=== PATIENT | female | born 1965 | race Caucasian/White ===

== ENCOUNTER 2017-05-05 09:09 | Outpatient (CLI) | payer BC ==
[~2017-05-05] VITALS: Ht 167.6 cm; Wt 124.5 kg
[2017-05-05] MEDS ORDERED: NIAC500T24 PO (09:25)
[2017-05-05] MEDS ORDERED: NITR0.4T39 SL (09:25)
[2017-05-05] MEDS ORDERED: OXYC-465 PO (09:25)
[2017-05-05] MEDS ORDERED: LISI-552 PO (09:25)
[2017-05-05] MEDS ORDERED: METH750T3 PO (09:25)
[2017-05-05] MEDS ORDERED: METO-333 PO (09:25)
[2017-05-05] MEDS ORDERED: ASPI-586 PO (09:25)
[2017-05-05] MEDS ORDERED: FLUO20CA42 PO (09:25)
[2017-05-05] MEDS ORDERED: CLON0.5T25 PO (09:25)
[2017-05-05] MEDS ORDERED: PANT40TA3 PO (09:25)
[2017-05-05] MEDS ORDERED: HYDR25TA4 PO (09:25)
[2017-05-05] MEDS ORDERED: FISH1CAP15 PO (09:25)
[2017-05-05] MEDS ORDERED: PRAS10TA10 PO (09:25)
[2017-05-05 09:30] VITALS: BP 155/95
== END 2017-05-05 10:05 ==
LOC: PREOP 09:09
PROVIDERS: ATTEND Podiatrist Foot Surgery
DX: Z01.818 Encounter for other preprocedural examination (principal); M92.61 Juvenile osteochondrosis of tarsus, right ankle

== ENCOUNTER 2018-03-27 19:49 | Emergency (ER) | payer BC ==
[~2018-03-27] VITALS: Ht 168.9 cm; Wt 116.1 kg
[~2018-03-27 19:49] MED LIST: ASPI-586 PO; CLON0.5T25 PO; FISH1CAP15 PO; FLUO20CA42 PO; HYDR25TA4 PO; LISI-552 PO; METH750T3 PO; METO-333 PO; NIAC500T24 PO; NITR0.4T39 SL; OXYC-465 PO; PANT40TA3 PO; PRAS10TA10 PO
[2018-03-27] MEDS ORDERED: NS IV 1000 ML 1,000 ML IV ONE (20:31)
[2018-03-27 20:37] LABS: BASOPHILS % (AUTO) 0 % (0-10); EOSINOPHILS # (AUTO) 0.1 10^3/uL (0.0-0.3); EOSINOPHILS % (AUTO) 1 % (0-10); HEMATOCRIT 43 % (35-52); HEMOGLOBIN 14.7 G/DL (11.5-16.0); LYMPHOCYTES # (AUTO) 1.2 X 10^3 (1.0-4.0); LYMPHOCYTES % (AUTO) 18 % (12-44); MEAN CORPUSCULAR HEMOGLOBIN 30 PG (25-34); MEAN CORPUSCULAR HGB CONC 34 G/DL (32-36); MEAN CORPUSCULAR VOLUME 87 FL (80-99); MEAN PLATELET VOLUME 10.1 FL (7.4-10.4); MONOCYTES # (AUTO) 0.6 X 10^3 (0.0-1.0); MONOCYTES % (AUTO) 9 % (0-12); NEUTROPHILS # (AUTO) 4.6 X 10^3 (1.8-7.8); NEUTROPHILS % (AUTO) 71 % (42-75); PLATELET COUNT 296 10^3/uL (130-400); RED BLOOD COUNT 4.91 10^6/uL (4.35-5.85); RED CELL DISTRIBUTION WIDTH 14.7 % (10.0-14.5); WHITE BLOOD COUNT 6.5 10^3/uL (4.3-11.0)
[2018-03-27] MEDS ORDERED: FAMOTIDINE 20MG/2ML IV (PEPCID) IVP ONE (20:45)
[2018-03-27] MEDS ORDERED: ONDANSETRON 4 MG/2 ML (SDV) Z0FRAN IVP ONE (20:45)
[2018-03-27 20:50] LABS: ALANINE AMINOTRANSFERASE 61 U/L (0-55); ALKALINE PHOSPHATASE 106 U/L (40-136); BILIRUBIN,TOTAL 0.6 MG/DL (0.1-1.0); BUN/CREATININE RATIO 21; CALCIUM 9.3 MG/DL (8.5-10.1); CARBON DIOXIDE 23 MMOL/L (21-32); CHLORIDE 103 MMOL/L (98-107); CREATININE SERUM 0.84 MG/DL (0.60-1.30); GFR ESTIMATED > 60; GLUCOSE 98 MG/DL (70-105); LIPASE 13 U/L (8-78); MAGNESIUM 2.2 MG/DL (1.8-2.4); POTASSIUM 3.7 MMOL/L (3.6-5.0); SODIUM 139 MMOL/L (135-145); TOTAL PROTEIN 7.1 GM/DL (6.4-8.2)
[2018-03-27] MEDS ORDERED: LIDOCAINE 2% VISCOUS 15 ML UDC PO ONE (21:00)
[2018-03-27] MEDS ORDERED: ANTACID SUSP 30 ML UDC (MYLANTA) PO ONE (21:00)
[2018-03-27 21:06] LABS: CLARITY,URINE CLEAR; COLOR,URINE AMBER; GLUCOSE, URINE (UA) NEGATIVE (NEGATIVE); KETONES,URINE 3+ (NEGATIVE); LEUKOCYTE ESTERASE ,URINE 1+ (NEGATIVE); NITRITE,URINE NEGATIVE (NEGATIVE); PH,URINE 5 (5-9); PROTEIN,URINE 2+ (NEGATIVE); UROBILINOGEN,URINE 4 MG/DL (NORMAL)
--- NOTE | 2018-03-27 21:07 | ED Abdominal Pain ---
General Chief Complaint: Abdominal/GI Problems Stated Complaint: POSSIBLE BOWEL OBSTRUCTION Nursing Triage Note: Pt arrived with cc of possible bowel obstruction. Pt was seen at urgent care in [place] and had x-ray done. They were going to go to ER in , but did not want to have to go somewhere else, so they came down here. Pt stated abd pain started around 0500 this morning. She had a runny stool this morning and last real bowel movement Tuesday. Pt is having pain from 5-6 that is dull, sharp and cramping constantly. Sepsis Screen: No Definite Risk Source of Information: Patient Exam Limitations: No Limitations History of Present Illness Date Seen by Provider: Mar 27, 2018 Time Seen by Provider: 20:24 Initial Comments This 52 year old woman ambulates to the ER with GI symptoms that started with nausea, vomiting, diarrhea, fever, and chills about 4 days ago. Those symptoms have subsided but now she has significant upper abdominal pain that started around 05:00. Her last stool was a runny stool this morning. She has been able to pass a little bit of gas here in the ER. She had an x-ray performed at the outpatient clinic in [place] which was suggestive of possible early small bowel obstruction. They were advised to present to the emergency room. Patient states she does feel bloated. She's never had a bowel obstruction in the past. She is afebrile with normal vital signs at present. Allergies and Home Medications Allergies Coded Allergies: simvastatin (Verified Allergy, Mild, HIVES, 05/05/17) Home Medications Aspirin 81 Mg Tablet.dr, 81 MG PO DAILY, (Reported) Clonazepam 0.5 Mg Tab.rapdis, 0.5 MG PO BID, (Reported) Fish Oil/Dha/Epa 1 Each Capsule, 1 EACH PO BID, (Reported) Fluoxetine HCl 20 Mg Capsule, 20 MG PO DAILY, (Reported) Hydrochlorothiazide 25 Mg Tablet, 25 MG PO DAILY, (Reported) Lisinopril 20 Mg Tablet, 20 MG PO DAILY, (Reported) Methocarbamol 750 Mg Tablet, 750 MG PO TID, (Reported) Metoprolol Tartrate 25 Mg Tablet, 25 MG PO BID, (Reported) Niacinamide 500 Mg Tablet, 500 MG PO DAILY, (Reported) Nitroglycerin 0.4 Mg Tab.subl, 0.4 MG SL UD PRN for CHEST PAIN, (Reported) Oxycodone HCl/Acetaminophen 1 Each Tablet, 1 EACH PO Q4H PRN for PAIN-MODERATE, (Reported) Pantoprazole Sodium 40 Mg Tablet.dr, 40 MG PO DAILY, (Reported) Prasugrel HCl 10 Mg Tablet, 10 MG PO DAILY, (Reported) Patient Home Medication List Home Medication List Reviewed: Yes Review of Systems Review of Systems Constitutional: see HPI EENTM: No Symptoms Reported Respiratory: No Symptoms Reported Cardiovascular: No Symptoms Reported Gastrointestinal: See HPI Genitourinary: No Symptoms Reported Musculoskeletal: no symptoms reported Skin: no symptoms reported Psychiatric/Neurological: No Symptoms Reported Endocrine: No Symptoms Reported Hematologic/Lymphatic: No Symptoms Reported Past Kfexsrr-Gxvyvp-Vbclnn Hx Past Med/Social Hx: Reviewed and Corrections made Patient Social History Alcohol Use: Occasionally Uses Recreational Drug Use: No Smoking Status: Former Smoker Type Used: Cigarettes Former Smoker, Quit: Aug 12, 2016 Recent Foreign Travel: No Contact w/Someone Who Travel: No Recent Infectious Disease Expo: No Recent Hopitalizations: No Physical Abuse: No Sexual Abuse: No Mistreated: No Fear: No Seasonal Allergies Seasonal Allergies: Yes Past Medical History Surgeries: Yes (CARDIAC STENT/ANGIOPLASTY, CS X4) Section, Coronary Stent, Gallbladder, Tonsillectomy Respiratory: Yes (EARYL STAGES OF COPD) COPD Cardiac: Yes (STENT/ANGIOPLASTY AUGUST 2016) Coronary Artery Disease, Heart Attack, Heart Murmur, High Cholesterol, Hypertension Neurological: No Reproductive Disorders: No Female Reproductive Disorders: Denies Sexually Transmitted Disease: No HIV/AIDS: No Gastrointestinal: Yes Gastroesophageal Reflux Musculoskeletal: Yes Degenerate Disk Disease, Arthritis, Chronic Back Pain Endocrine: No Loss of Vision: Bilateral Hearing Impairment: Denies Cancer: No Psychosocial: Yes Anxiety Integumentary: No Blood Disorders: No Adverse Reaction/Blood Tranf: No Physical Exam Vital Signs Vital Signs - First Documented 03/27/18 20:18 Temp 99.9 Pulse 88 Resp 20 B/P (MAP) 130/89 (103) Pulse Ox 96 O2 Delivery Room Air Capillary Refill : Less Than 3 Seconds Height/Weight/BMI Height: 5'6.50" Weight: 256lbs. 9.0oz. 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 nml as tested, no motor/sensory deficits, alert, normal mood/affect, oriented x 3 Skin: normal color, warm/dry Progress/Results/Core Measures Results/Orders Lab Results Laboratory Tests Test 03/27/18 20:17 03/27/18 20:30 Range/Units White Blood Count 6.5 4.3-11.0 10^3/uL Red Blood Count 4.91 4.35-5.85 10^6/uL Hemoglobin 14.7 11.5-16.0 G/DL Hematocrit 43 35-52 % Mean Corpuscular Volume 87 80-99 FL Mean Corpuscular Hemoglobin 30 25-34 PG Mean Corpuscular Hemoglobin Concent 34 32-36 G/DL Red Cell Distribution Width 14.7 H 10.0-14.5 % Platelet Count 296 130-400 10^3/uL Mean Platelet Volume 10.1 7.4-10.4 FL Neutrophils (%) (Auto) 71 42-75 % Lymphocytes (%) (Auto) 18 12-44 % Monocytes (%) (Auto) 9 0-12 % Eosinophils (%) (Auto) 1 0-10 % Basophils (%) (Auto) 0 0-10 % Neutrophils # (Auto) 4.6 1.8-7.8 X 10^3 Lymphocytes # (Auto) 1.2 1.0-4.0 X 10^3 Monocytes # (Auto) 0.6 0.0-1.0 X 10^3 Eosinophils # (Auto) 0.1 0.0-0.3 10^3/uL Basophils # (Auto) 0.0 0.0-0.1 10^3/uL Sodium Level 139 135-145 MMOL/L Potassium Level 3.7 3.6-5.0 MMOL/L Chloride Level 103 98-107 MMOL/L Carbon Dioxide Level 23 21-32 MMOL/L Anion Gap 13 5-14 MMOL/L Blood Urea Nitrogen 18 7-18 MG/DL Creatinine 0.84 0.60-1.30 MG/DL Estimat Glomerular Filtration Rate > 60 BUN/Creatinine Ratio 21 Glucose Level 98 70-105 MG/DL Calcium Level 9.3 8.5-10.1 MG/DL Corrected Calcium 9.3 8.5-10.1 MG/DL Magnesium Level 2.2 1.8-2.4 MG/DL Total Bilirubin 0.6 0.1-1.0 MG/DL Aspartate Amino Transf (AST/SGOT) 45 H 5-34 U/L Alanine Aminotransferase (ALT/SGPT) 61 H 0-55 U/L Alkaline Phosphatase 106 40-136 U/L Total Protein 7.1 6.4-8.2 GM/DL Albumin 4.0 3.2-4.5 GM/DL Lipase 13 8-78 U/L Urine Color YESSY H Urine Clarity CLEAR Urine pH 5 5-9 Urine Specific [place] 1.020 1.016-1.022 Urine Protein 2+ H NEGATIVE Urine Glucose (UA) NEGATIVE NEGATIVE Urine Ketones 3+ H NEGATIVE Urine Nitrite NEGATIVE NEGATIVE Urine Bilirubin 2+ H NEGATIVE Urine Urobilinogen 4 H NORMAL MG/DL Urine Leukocyte Esterase 1+ H NEGATIVE Urine RBC (Auto) 1+ H NEGATIVE Urine RBC 2-5 H /HPF Urine WBC 2-5 /HPF Urine Squamous Epithelial Cells 2-5 /HPF Urine Crystals PRESENT H /LPF Urine Calcium Oxalate Crystals FEW H /LPF Urine Bacteria TRACE /HPF Urine Casts NONE /LPF Urine Mucus NEGATIVE /LPF Urine Culture Indicated NO My Orders Orders - MARISELA JOHNSON MD Cbc With Automated Diff (03/27/18 20:31) Comprehensive Metabolic Panel (03/27/18 20:31) Lipase (03/27/18 20:31) Magnesium (03/27/18 20:31) Ua Culture If Indicated (03/27/18 20:31) Saline Lock/Iv-Start (03/27/18 20:31) Ns Iv 1000 Ml (Sodium Chloride 0.9%) (03/27/18 20:31) Ondansetron Injection (Zofran Injectio (03/27/18 20:45) Famotidine Injection (Pepcid Injection) (03/27/18 20:45) Lidocaine 2% Viscous 15 Ml (Xylocaine Vi (03/27/18 21:00) Antacid Suspension (Mylanta Suspension (03/27/18 21:00) Fentanyl Injection (Sublimaze Injection (03/27/18 21:30) Ct Abdomen/Pelvis W (03/27/18 21:27) Iohexol Injection (Omnipaque 350 Mg/Ml 1 (03/27/18 22:15) Contrast Received (Contrast Received) (03/27/18 22:15) Ns (Ivpb) (Sodium Chloride 0.9% Ivpb Bag (03/27/18 22:15) Lactated Ringers (Lr 1000 Ml Iv Solution (03/27/18 23:11) Fentanyl Injection (Sublimaze Injection (03/27/18 23:30) Medications Given in ED Vital Signs/I&O 03/27/18 03/27/18 20:18 23:56 Temp 99.9 98.4 Pulse 88 69 Resp 20 18 B/P (MAP) 130/89 (103) 126/84 (98) Pulse Ox 96 95 O2 Delivery Room Air Room Air Blood Pressure Mean: 103 Progress Progress Note #1: Time: 21:06 Progress Note Patient was seen and assessed. Labs were reviewed. There are no significant lab abnormalities. UA is pending. Patient was treated with IV fluids, Zofran, and Pepcid. We will try a GI cocktail to see if that alleviates her pain. After that I will discuss further options which might include CT scan. Progress Note #2: Time: 21:30 Progress Note GI cocktail did not improve pain. Actually, her pain is worse. She is requesting pain medication. Fentanyl was ordered. After discussion of risks and benefits, CT of the abdomen and pelvis was also ordered. Progress Note #3: Time: 23:13 Progress Note Small bowel obstruction was identified on CT. No beds are available at this facility. Patient requests transfer to [facility] in [place]. Transfer was accepted by Dr. Chaudhry. Patient is ready for more pain medication. Fentanyl was ordered. A second liter of IV fluid was ordered as patient's urine suggest hypovolemia/dehydration. Diagnostic Imaging Diagonstic Imaging: CT Plain Films/CT/US/NM/MRI: abdomen, pelvis Comments CT abdomen and pelvis viewed by me. [facility] report reviewed. There is a distal small bowel obstruction without perforation. There is a secondary finding of a 2.8 cm diameter fluid containing structure in the right lower quadrant that abuts the right adnexa and is of uncertain etiology. It does not clearly represented abscessing could be a hydrosalpinx. See report for more details. Clinically, patient's pain is in her upper abdomen and does not correlate with this finding. Departure Impression Primary Impression: Small bowel obstruction Additional Impressions: Nausea vomiting and diarrhea Upper abdominal pain Hypovolemia Disposition: SHT-TRM HOSP Condition: Stable Transfer Time Spoke to Accepting Phy: 11:00 Transfer Progress Notes Patient was accepted to [facility] by general surgeon home economics extension worker, Dr. Chaudhry. Transfer Time: 00:33 Method of Transfer: EMS Departure-Patient Inst. Referrals: CARLA MOBLEY DO (PCP/Family) Primary Care Physician MARISELA OJHNSON MD Mar 27, 2018 21:07
[2018-03-27 21:14] LABS: BACTERIA,URINE TRACE /HPF; BILIRUBIN,URINE 2+ (NEGATIVE)
[2018-03-27 21:15] LABS: CALCIUM OXALATE CRYSTALS,UR FEW /LPF
[2018-03-27] MEDS ORDERED: fentaNYL INJECTION 100 MCG/2 ML AMP IVP ONE ×3 (21:30→23:30)
--- NOTE | 2018-03-27 21:54 | NUR ---
Pt stated pain is about the same. She feels like her stomach is growing.
[2018-03-27] MEDS ORDERED: IOHEXOL 350 MG/ML 100 ML (OMNIPAQUE 350) VIAL IV ONE (22:15)
[2018-03-27] MEDS ORDERED: NS 100 ML (IVPB) BAG IV ONE (22:15)
[2018-03-27] MEDS ORDERED: RECEIVED CONTRAST (Hold Metformin) IV SCH (22:15)
--- NOTE | 2018-03-27 22:32 | NUR ---
Pt stated pain is better. She stated pain is aching and heavy now.
--- NOTE | 2018-03-27 23:04 | NUR ---
Facesheet and vital signs faxed to [facility] at this time.
[2018-03-27] MEDS ORDERED: LACTATED RINGERS 1,000 ML IV ONE (23:11)
--- NOTE | 2018-03-27 23:42 | NUR ---
[facility] called at this time with room number of 391 and report number of [phone]
[2018-03-27 23:56] VITALS: BP 126/84
--- NOTE | 2018-03-28 00:01 | NUR ---
EMS was contacted at this time about transfer and that a room number has been given.
--- NOTE | 2018-03-28 00:02 | NUR ---
Dispatch was called and transfer information was given at this time.
--- NOTE | 2018-03-28 00:26 | NUR ---
Report was given to [facility] at this time. Care was transferred.
--- NOTE | 2018-03-28 00:27 | NUR ---
LR was continued en route with EMS
--- NOTE | 2018-03-28 08:08 | Diagnostic Imaging Report ---
PROCEDURE: CT abdomen and pelvis with contrast. TECHNIQUE: Multiple contiguous axial images were obtained through the abdomen and pelvis after administration of intravenous contrast. INDICATION: Abdominal pain COMPARISON: None available. FINDINGS: Lower chest: The lung bases are clear. No pericardial or pleural effusion. Peritoneum: A small volume of free pelvic fluid is present. No free intraperitoneal air. Liver and biliary system: Diffuse hypoattenuation liver is indicative of hepatic steatosis. No focal hepatic lesion. Cholecystectomy. No pathologic biliary duct dilatation. Spleen and Pancreas: Spleen is normal. The pancreas enhances normally without mass lesion or peripancreatic inflammatory changes. Adrenals: Normal. tract: The kidneys enhance normally without suspicious mass or obstruction. Urinary bladder is distended without wall thickening. Uterus is normal in appearance. A 4.1 x 2.8 cm cystic structure in the right adnexa is of unknown etiology. GI tract: Stomach is partially filled with fluid and air and there is no wall thickening. There are air and fluid-filled loops of small bowel in the left hemiabdomen. Distal small bowel loops are decompressed and features are compatible with partial small bowel obstruction. A discrete transition point is not appreciated but is likely in the left lower quadrant. No pericolonic inflammatory changes. Appendix is not seen with certainty. Vasculature and Lymph nodes: Normal caliber aorta. No abdominal or pelvic lymphadenopathy. Musculoskeletal: No concerning osseous lesion. IMPRESSION: 1. Partial small bowel obstruction with the transition point not definitely identified but potentially in the left lower quadrant. No perforation, pneumatosis or abscess. 2. Hepatic steatosis. 3. Cystic structure in right adnexa could be ovarian in nature. Followup pelvic ultrasound could be performed in the future for further characterization. 4. Findings are in agreement with the preliminary report. Dictated by: Dictated on workstation # [id number]
== END 2018-03-28 00:27 | disposition short-term general hospital (02) ==
LOC: EDUNIT# 19:49 → ER 19:52
DX: K56.609 Unspecified intestinal obstruction, unspecified as to partial versus complete obstruction (principal); E86.1 Hypovolemia; R19.7 Diarrhea, unspecified; J44.9 Chronic obstructive pulmonary disease, unspecified; I25.10 Atherosclerotic heart disease of native coronary artery without angina pectoris; I25.2 Old myocardial infarction; E78.00 Pure hypercholesterolemia, unspecified; I10 Essential (primary) hypertension; K21.9 Gastro-esophageal reflux disease without esophagitis; F41.9 Anxiety disorder, unspecified; Z88.8 Allergy status to other drugs, medicaments and biological substances; Z79.82 Long term (current) use of aspirin; Z87.891 Personal history of nicotine dependence; Z95.5 Presence of coronary angioplasty implant and graft; Z98.890 Other specified postprocedural states; Z90.89 Acquired absence of other organs; Z98.61 Coronary angioplasty status
CPT/HCPCS: 36415; 74177; 80053; 81000; 83690; 83735; 85025

== ENCOUNTER → 2019-12-27 | Outpatient (CLI) | payer BC ==
[~2019-12-27] MED LIST changes: -OXYC-465 PO; +OXYC-556 PO; -PANT40TA3 PO; +PANT40TA52 PO
--- NOTE | 2019-12-27 12:33 | Diagnostic Imaging Report ---
INDICATION: Low back pain. 3 views were obtained FINDINGS: There is some slight anterolisthesis of L4 on L5. Vertebral body heights well-maintained. There is multilevel degenerative disc disease. IMPRESSION: Diffuse lumbar spondylosis and multilevel degenerative disease with slight anterolisthesis of L4 on L5. Dictated by: Dictated on workstation # [id number]
== END ==
LOC: RAD FS 12:00
PROVIDERS: ATTEND Nurse Practitioner Family
DX: M47.816 Spondylosis without myelopathy or radiculopathy, lumbar region (principal); M51.36 Other intervertebral disc degeneration, lumbar region; M43.16 Spondylolisthesis, lumbar region
CPT/HCPCS: 72100

== ENCOUNTER → 2020-01-15 | Outpatient (CLI) | payer BC ==
--- NOTE | 2020-01-15 13:05 | Diagnostic Imaging Report ---
PROCEDURE: MRI lumbar spine. TECHNIQUE: Multiplanar, multisequence MRI of the lumbar spine was performed without contrast. INDICATION: Chronic low back pain extending into both legs. No prior MRI studies are available for comparison. Curvature of the lumbar spine is normal. There is minimal retrolisthesis of L2 on L3. Vertebral body heights are maintained. No acute compression fracture is identified. No geographic marrow lesion is seen. There are some reactive Modic changes within the endplates at L5-S1. There is generalized degenerative disc disease with variable disc space narrowing and desiccation, greatest at L1-L2 and L2-L3 as well as L5-S1 levels. The conus is unremarkable at L1. T12-L1: No central canal or neural foraminal narrowing is identified. L1-L2: There is some mild broad-based disc/osteophyte complex present. Central canal is patent but there is narrowing of the lateral recesses bilaterally. There is also mild bilateral neural foraminal narrowing. L2-L3: Broad-based disc/osteophyte complex indents the ventral thecal sac. Central canal remains patent but there is significant narrowing of the lateral recesses bilaterally. There is mild bilateral neural foraminal narrowing. L3-L4: Degenerative facet changes are noted. Central canal is patent. There is moderate narrowing of the left lateral recess. Right lateral recess is patent. There is also moderate left and mild right neural foraminal stenosis. L4-L5: Hypertrophic facet changes with ligamentous thickening and broad-based disc/osteophyte complex results in fairly significant trefoil stenosis to the central canal. There is significant narrowing of the lateral recesses bilaterally. Moderate left neural foraminal stenosis is seen. L5-S1: Central canal is patent. There is narrowing of the lateral recesses bilaterally. There is [id number] bilateral neural foraminal stenosis. Paraspinous tissues are unremarkable. IMPRESSION: Multilevel lumbar spondylosis with multilevel central canal, lateral recess and neural foraminal stenosis described level by level above. No acute compression fracture is detected. Dictated by: Dictated on workstation # [id number]
== END ==
LOC: RAD 11:00
PROVIDERS: ATTEND Physician Assistant
DX: M51.36 Other intervertebral disc degeneration, lumbar region (principal); M51.37 Other intervertebral disc degeneration, lumbosacral region; M51.87 Other intervertebral disc disorders, lumbosacral region; M48.061 Spinal stenosis, lumbar region without neurogenic claudication; M48.07 Spinal stenosis, lumbosacral region; M43.16 Spondylolisthesis, lumbar region
CPT/HCPCS: 72148

== ENCOUNTER 2021-02-10 12:27 | Emergency (ER) | payer BC ==
[~2021-02-10] VITALS: Ht 168 cm; Wt 122.4 kg
[~2021-02-10 12:27] MED LIST changes: -LISI-552 PO; +LISI20TA26 PO; +METH-732 PO; -METH750T3 PO
[2021-02-10] MEDS ORDERED: NITROGLYCERIN 0.4 MG SL TABS BTL 25'S SL ONE (12:43)
[2021-02-10] MEDS ORDERED: ASPIRIN 81 MG CHEW (CHILDREN'S ASA) ONE (12:43)
[2021-02-10] MEDS: NITROGLYCERIN 0.4 MG SL TABS BTL 25'S SL PRN ×2 (12:50→12:55)
[2021-02-10 13:00] LABS: PROTHROMBIN TIME PATIENT 13.5 SEC (12.2-14.7)
[2021-02-10] MEDS ORDERED: ASPIRIN 81 MG CHEW (CHILDREN'S ASA) PO ONE (13:00)
--- NOTE | 2021-02-10 13:05 | Diagnostic Imaging Report ---
INDICATION: Hypertension. FINDINGS: Portable chest. The lungs are well aerated and clear. Heart is not enlarged. No pulmonary edema or hilar adenopathy. No pneumothorax or pleural effusions. No bony abnormalities. IMPRESSION: Normal portable chest. Dictated by: Dictated on workstation # [id number]
[2021-02-10 13:09] LABS: HEMATOCRIT 41 % (35-52); HEMOGLOBIN 13.4 g/dL (11.5-16.0); LYMPHOCYTES % (AUTO) 22 % (12-44); MEAN CORPUSCULAR HEMOGLOBIN 29 pg (25-34); MEAN CORPUSCULAR HGB CONC 33 g/dL (32-36); MEAN CORPUSCULAR VOLUME 89 fL (80-99); MEAN PLATELET VOLUME 10.7 fL (9.0-12.2); NEUTROPHILS % (AUTO) 67 % (42-75); PLATELET COUNT 361 10^3/uL (130-400); WHITE BLOOD COUNT 8.8 10^3/uL (4.3-11.0)
[2021-02-10 13:10] LABS: BASOPHILS # (AUTO) 0.1 10^3/uL (0.0-0.1); BASOPHILS % (AUTO) 1 % (0-10); EOSINOPHILS # (AUTO) 0.3 10^3/uL (0.0-0.3); EOSINOPHILS % (AUTO) 4 % (0-10); LYMPHOCYTES # (AUTO) 1.9 X 10^3 (1.0-4.0); MONOCYTES # (AUTO) 0.6 X 10^3 (0.0-1.0); MONOCYTES % (AUTO) 6 % (0-12); NEUTROPHILS # (AUTO) 5.9 X 10^3 (1.8-7.8)
--- NOTE | 2021-02-10 13:12 | ED Chest Pain ---
General Chief Complaint: Cardiac/General Problems Stated Complaint: ELEV BP; SOB; DIAPHORESIS Nursing Triage Note: Patient presents to the ED with c/o shortness of breath, heaviness in bilateral shoulders, and elevated blood pressure. She reports that her symptoms began Tuesday when she started feeling short of breath and feeling anxious. She states that she started having heaviness and pressure in her shoulders approximately 1 hour prior to arrival. She reports that he she has been taking her blood pressure today and it has been elevated. Source: patient Exam Limitations: no limitations History of Present Illness Date Seen by Provider: Feb 10, 2021 Time Seen by Provider: 12:33 Initial Comments Here with report of markedly elevated blood pressure and heaviness in the bilateral shoulders. Does feel a bit short of breath. Does have history of acute HI 4 years ago and did have stent placed. Currently only on propranolol 50 mg twice daily. She takes that as needed. This was later determined to be metoprolol. Does not take aspirin or other anticoagulants. This is a little different than when she had her heart attack but she did have markedly uncontrolled blood pressure at the time. She does have appointment with her solar sales representative and assessor next week at [facility]. Denies nausea or vomiting but does feel the urge to go to the bathroom (bowel movement). Otherwise denies any illness symptoms. Timing/Duration: 4-6 hours, constant Severity/Quality: moderate, pressure Location: shoulder Radiation: no radiation Activities at Onset: none Prior CP/Workup: cardiac cath, heart attack Modifying Factors: improves with rest ASA po TELEPHONE BETTING CLERK: No NTG SL TELEPHONE BETTING CLERK: No Associated Symptoms: No abdominal pain, No back pain, No diaphoresis, No dizziness; fatigue; No nausea/vomiting; shortness of breath; No weakness Allergies and Home Medications Allergies Coded Allergies: simvastatin (Verified Allergy, Mild, HIVES, 05/05/17) Patient Home Medication List Home Medication List Reviewed: Yes Aspirin (Aspir 81) 81 Mg Tablet.dr, 81 MG PO DAILY, (Reported) Entered as Reported by: FLORES GARCIA on 05/05/17924 Clonazepam (Clonazepam) 0.5 Mg Tab.rapdis, 0.5 MG PO BID, (Reported) Entered as Reported by: FLORES GARCIA on 05/05/1725 Fish Oil/Dha/Epa (Fish Oil 1,200 mg Fish Oil) 1 Each Capsule, 1 EACH PO BID, (Reported) Entered as Reported by: FLORES GARCIA on 05/05/17924 Fluoxetine HCl (Prozac) 20 Mg Capsule, 20 MG PO DAILY, (Reported) Entered as Reported by: FLORES GARCIA on 05/05/17924 Hydrochlorothiazide (Hydrochlorothiazide) 25 Mg Tablet, 25 MG PO DAILY, (Reported) Entered as Reported by: FLORES GARCIA on 05/05/17924 Lisinopril (Lisinopril) 20 Mg Tablet, 20 MG PO DAILY, (Reported) Entered as Reported by: FLORES GARCIA on 05/05/17924 Methocarbamol (Methocarbamol) 750 Mg Tablet, 750 MG PO TID, (Reported) Entered as Reported by: FLORES GARCIA on 05/05/17924 Metoprolol Tartrate (Metoprolol Tartrate) 25 Mg Tablet, 25 MG PO BID, (Reported) Entered as Reported by: FLORES GARCIA on 05/05/17924 Niacinamide (Niacin) 500 Mg Tablet, 500 MG PO DAILY, (Reported) Entered as Reported by: FLORES GARCIA on 05/05/17924 Nitroglycerin (Nitroglycerin) 0.4 Mg Tab.subl, 0.4 MG SL UD PRN for CHEST PAIN, (Reported) Entered as Reported by: FLORES GARCIA on 05/05/17924 Oxycodone HCl/Acetaminophen (Oxycodone-Acetaminophen 10-325) 1 Each Tablet, 1 EACH PO Q4H PRN for PAIN-MODERATE, (Reported) Entered as Reported by: FLORES GARCIA on 05/05/17924 Pantoprazole Sodium (Pantoprazole Sodium) 40 Mg Tablet.dr, 40 MG PO DAILY, (Reported) Entered as Reported by: FLORES GARCIA on 05/05/17924 Prasugrel HCl (Prasugrel HCl) 10 Mg Tablet, 10 MG PO DAILY, (Reported) Entered as Reported by: FLORES GARCIA on 05/05/17924 Review of Systems Review of Systems Constitutional: see HPI; No chills, No fever EENTM: No Symptoms Reported Respiratory: See HPI; Denies Cough, Denies Wheezing Cardiovascular: Chest Pain; Denies Edema Gastrointestinal: See HPI; Denies Nausea, Denies Vomiting Genitourinary: No Symptoms Reported Musculoskeletal: see HPI, joint pain, muscle pain Skin: no symptoms reported All Other Systems Reviewed Negative Unless Noted: Yes Past Kblqjzy-Hbikeb-Wwlgft Hx Patient Social History Tobacco Use?: No Use of E-Cig and/or Vaping dev: No Substance use?: No Alcohol Use?: No Pt feels they are or have been: No Immunizations Up To Date First/Initial COVID19 Vaccinat: Not currently vaccinated Seasonal Allergies Seasonal Allergies: Yes Past Medical History Surgery/Hospitalization HX: HTN; [place]; Cardiac stent; Arthritis Surgeries: Yes (CARDIAC STENT/ANGIOPLASTY, CS X4) Section, Coronary Stent, Gallbladder, Tonsillectomy Respiratory: Yes (EARYL STAGES OF COPD) COPD Cardiac: Yes (STENT/ANGIOPLASTY AUGUST 2016) Coronary Artery Disease, Heart Attack, Heart Murmur, High Cholesterol, Hypertension Neurological: No Reproductive Disorders: No Female Reproductive Disorders: Denies Sexually Transmitted Disease: No HIV/AIDS: No Gastrointestinal: Yes Gastroesophageal Reflux Musculoskeletal: Yes Degenerate Disk Disease, Arthritis, Chronic Back Pain Endocrine: No Loss of Vision: Bilateral Hearing Impairment: Denies Cancer: No Psychosocial: Yes Anxiety Integumentary: No Blood Disorders: No Adverse Reaction/Blood Tranf: No Family Medical History Reviewed Nursing Family Hx Hypertension, Renal Disease Physical Exam Vital Signs Vital Signs - First Documented 02/10/21 12:30 Temp 36.2 Pulse 76 Resp 20 B/P (MAP) 219/109 (145) Pulse Ox 98 O2 Delivery Room Air Capillary Refill : Less Than 3 Seconds Height, Weight, BMI Height: 5'6.50" Weight: 256lbs. 9.0oz. [id number]; 43.00 BMI Method:Stated General Appearance: No Apparent Distress, WD/WN HEENT: PERRL/EOMI, Pharynx Normal Neck: Non Tender, Supple Respiratory: Lungs Clear, Normal Breath Sounds Cardiovascular: Regular Rate, Rhythm, No Murmur Gastrointestinal: Non Tender, Soft Extremity: Normal Range of Motion, Non Tender Neurologic/Psychiatric: Alert, Oriented x3 Skin: Normal Color, Warm/Dry Progress/Results/Core Measures Results/Orders Lab Results Laboratory Tests Test 02/10/21 12:40 11/30/21 14:28 Range/Units White Blood Count 8.8 4.3-11.0 10^3/uL Red Blood Count 4.61 3.80-5.11 10^6/uL Hemoglobin 13.4 11.5-16.0 g/dL Hematocrit 41 35-52 % Mean Corpuscular Volume 89 80-99 fL Mean Corpuscular Hemoglobin 29 25-34 pg Mean Corpuscular Hemoglobin Concent 33 32-36 g/dL Red Cell Distribution Width 13.6 10.0-14.5 % Platelet Count 361 130-400 10^3/uL Mean Platelet Volume 10.7 9.0-12.2 fL Neutrophils (%) (Auto) 67 42-75 % Lymphocytes (%) (Auto) 22 12-44 % Monocytes (%) (Auto) 6 0-12 % Eosinophils (%) (Auto) 4 0-10 % Basophils (%) (Auto) 1 0-10 % Neutrophils # (Auto) 5.9 1.8-7.8 X 10^3 Lymphocytes # (Auto) 1.9 1.0-4.0 X 10^3 Monocytes # (Auto) 0.6 0.0-1.0 X 10^3 Eosinophils # (Auto) 0.3 0.0-0.3 10^3/uL Basophils # (Auto) 0.1 0.0-0.1 10^3/uL Prothrombin Time 13.5 12.2-14.7 SEC INR Comment 1.0 0.8-1.4 Activated Partial Thromboplast Time 29 24-35 SEC Sodium Level 139 135-145 MMOL/L Potassium Level 4.5 3.6-5.0 MMOL/L Chloride Level 104 98-107 MMOL/L Carbon Dioxide Level 25 21-32 MMOL/L Anion Gap 10 5-14 MMOL/L Blood Urea Nitrogen 15 7-18 MG/DL Creatinine 0.68 0.60-1.30 MG/DL Estimat Glomerular Filtration Rate 90 BUN/Creatinine Ratio 22 Glucose Level 98 70-105 MG/DL Calcium Level 9.7 8.5-10.1 MG/DL Corrected Calcium 9.3 8.5-10.1 MG/DL Magnesium Level 2.2 1.6-2.4 MG/DL Total Bilirubin 0.4 0.1-1.0 MG/DL Aspartate Amino Transf (AST/SGOT) 30 5-34 U/L Alanine Aminotransferase (ALT/SGPT) 29 0-55 U/L Alkaline Phosphatase 121 40-136 U/L Myoglobin 22.2 10.0-92.0 NG/ML Troponin I < 0.30 < 0.30 <0.30 NG/ML Total Protein 8.0 6.4-8.2 GM/DL Albumin 4.5 3.2-4.5 GM/DL My Orders Orders - HOWIE POP MD Aspirin Chewable Tablet (Baby Aspirin Ch (02/10/21 12:43) Nitroglycerin 0.4 Mg Btl 25's (Nitrostat (02/10/21 12:43) Cbc With Automated Diff (02/10/21 12:46) Magnesium (02/10/21 12:46) Chest 1 View Ap/Pa Only (02/10/21 12:46) Ekg Tracing (02/10/21 12:46) Comprehensive Metabolic Panel (02/10/21 12:46) Myoglobin Serum (02/10/21 12:46) Protime With Inr (02/10/21 12:46) Partial Thromboplastin Time (02/10/21 12:46) Monitor-Rhythm Ecg Trace Only (02/10/21 12:46) Lipid Panel (02/11/21 06:00) Aspirin Chewable Tablet (Baby Aspirin Ch (02/10/21 13:00) Nitroglycerin 0.4 Mg Btl 25's (Nitrostat (02/10/21 13:00) Ed Iv/Invasive Line Start (02/10/21 12:46) Troponin I Fs (02/10/21 12:46) Amlodipine Tablet (Norvasc Tablet) (02/10/21 13:45) Clonidine Tablet (Catapres Tablet) (02/10/21 14:15) Troponin I Fs (02/10/21 14:29) Medications Given in ED Current Medications Medications Dose Ordered Sig/Dorie Route Start Time Stop Time Status Last Admin Dose Admin Amlodipine Besylate 10 mg ONCE ONCE PO 02/10/21 13:45 02/10/21 13:46 DC 02/10/21 13:37 10 MG Aspirin 324 mg ONCE ONCE PO 02/10/21 13:00 02/10/21 13:01 DC 02/10/21 12:50 324 MG Clonidine HCl 0.1 mg ONCE ONCE PO 02/10/21 14:15 02/10/21 14:16 DC 02/10/21 14:05 0.1 MG Nitroglycerin 0.4 mg UD PRN SL 02/10/21 13:00 02/10/21 12:55 0.4 MG Vital Signs/I&O 02/10/21 12:30 Temp 36.2 Pulse 76 Resp 20 B/P (MAP) 219/109 (145) Pulse Ox 98 O2 Delivery Room Air Blood Pressure Mean: 145 Progress Progress Note : Progress Note Seen and evaluated. IV, labs, EKG and chest x-ray ordered. ASA 324 mg p.o. Nitroglycerin sublingual ordered. 1314: Blood pressure 155/88 heart rate 58 currently with O2 sat 94%. Monitor patient. 1330: No acute findings on lab, x- ray or EKG. Blood pressure has improved. We will give amlodipine 10 mg p.o. now and repeat labs. If repeat troponin is still negative, patient will be discharged home if she is chest pain-free and she has cardiology follow-up already in place. Patient is in agreement with that plan. She does report that she has been taking her metoprolol as needed and not scheduled and this may be part of the issue as well. Previously was on lisinopril and hydrochlorothiazide and is no longer on those. Monitor patient. 1531: Chest pain/shoulder pain is gone currently. Blood pressure improved after amlodipine and currently is 154/74 with heart rate of 95 and O2 sat 97%. Patient now remembers that she has been out of her prescription for lisinopril and hydrochlorothiazide and needs to get back with her doctor. We will go ahead and write a month prescription for that and she will continue her metoprolol and follow-up with her solar sales representative and assessor next week as scheduled. Overall she feels better. Discharged home with return precautions. Patient verbalized understanding instructions and agreement with plan. Initial ECG Impression Date: Feb 10, 2021 Initial ECG Impression Time: 12:30 Initial ECG Rate: 67 Initial ECG Rhythm: Normal Sinus Comment Sinus rhythm with wandering baseline. Normal axis. No evidence of ST elevation HI. Interpreted by me. Diagnostic Imaging Diagonstic Imaging: Xray Plain Films/CT/US/NM/MRI: chest Comments [facility]. [place], [place] NAME: [facility] REC#: [id number] PT STATUS: REG ER : 1965 PHYSICIAN: HOWIE POP MD ADMIT DATE: 02/10/21/ER FS Draft Date of Exam:02/10/21 CHEST 1 VIEW AP/PA ONLY INDICATION: Hypertension. FINDINGS: Portable chest. The lungs are well aerated and clear. Heart is not enlarged. No pulmonary edema or hilar adenopathy. No pneumothorax or pleural effusions. No bony abnormalities. IMPRESSION: Normal portable chest. Dictated on workstation # [id number] Dict: 02/10/21 1302 Trans: 02/10/21 1305 [id number] Interpreted by: DAVIN WILKINSON MD Electronically signed by: Departure Impression Primary Impression: Labile hypertension Additional Impression: Chest pain Qualified Codes: R07.9 - Chest pain, unspecified Disposition: 01 HOME, SELF-CARE Condition: Improved Departure-Patient Inst. Decision time for Depature: 15:32 Referrals: CARLA MOBLEY DO (PCP/Family) Primary Care Physician Patient Instructions: High Blood Pressure ED, Chest Pain (DC) Add. Discharge Instructions: All discharge instructions reviewed with patient and/or family. Voiced understanding. Take medications as directed. Follow-up with your solar sales representative and assessor as scheduled. Return for worse pain, fever, vomiting, weakness, breathing problems or other concerns as needed. Scripts Hydrochlorothiazide (Hydrochlorothiazide) 25 Mg Tablet 25 MG PO DAILY for 30 Days, #30 TAB Prov: HOWIE POP MD 02/10/21 Lisinopril (Lisinopril) 20 Mg Tablet 20 MG PO DAILY for 30 Days, #30 TAB 0 Refills Prov: HOWIE POP MD 02/10/21 HOWIE POP MD Feb 10, 2021 13:12
[2021-02-10 13:22] LABS: ALBUMIN 4.5 GM/DL (3.2-4.5); BILIRUBIN,TOTAL 0.4 MG/DL (0.1-1.0); CALCIUM 9.7 MG/DL (8.5-10.1); CREATININE SERUM 0.68 MG/DL (0.60-1.30); MAGNESIUM 2.2 MG/DL (1.6-2.4); POTASSIUM 4.5 MMOL/L (3.6-5.0)
[2021-02-10] MEDS ORDERED: amLODIPine 10 MG (NORVASC) TAB PO ONE (13:45)
[2021-02-10] MEDS ORDERED: cloNIDine 0.1 MG (CATAPRES) TAB PO ONE (14:15)
[2021-02-10 15:32] VITALS: BP 154/74
[2021-02-10] MEDS ORDERED: HYDR25TA4 PO (15:36)
[2021-02-10] MEDS ORDERED: LISI20TA26 PO (15:36)
== END 2021-02-10 15:45 | disposition home or self-care (01) ==
LOC: EDUNIT# 12:27 → ER FS 12:29
DX: I10 Essential (primary) hypertension (principal); R07.9 Chest pain, unspecified; J44.9 Chronic obstructive pulmonary disease, unspecified; I25.2 Old myocardial infarction; K21.9 Gastro-esophageal reflux disease without esophagitis; F41.9 Anxiety disorder, unspecified; G89.29 Other chronic pain; M54.9 Dorsalgia, unspecified; Z79.82 Long term (current) use of aspirin; Z79.01 Long term (current) use of anticoagulants; Z79.899 Other long term (current) drug therapy; Z79.891 Long term (current) use of opiate analgesic
CPT/HCPCS: 36415; 71045; 80053; 83735; 83874; 84484; 85025; 85610; 85730; 93005; 93041

== ENCOUNTER 2022-04-16 12:20 | Emergency (ER) | payer BC ==
[~2022-04-16] VITALS: Ht 167.7 cm; Wt 112.5 kg
--- NOTE | 2022-04-16 12:30 | ED General ---
General Stated Complaint: LT ARM NUMBNESS; FACIAL NUMBNESS Source of Information: Patient Exam Limitations: No Limitations History of Present Illness Date Seen by Provider: Apr 16, 2022 Time Seen by Provider: 12:15 Initial Comments Patient is a 56-year-old female with history of CAD hypertension who presents with decreased concentration, fatigue, and symmetric facial numbness and tingling in the fingertips starting today while at work. Patient denies headache, blurred vision, chest pain, palpitations or shortness of breath. No fever chills, carcinoma [place] or sweats. No other acute symptoms or complain ts. Timing/Duration: 1-3 Hours Severity: Mild Associated Systoms: Other Allergies and Home Medications Allergies Coded Allergies: simvastatin (Verified Allergy, Mild, HIVES, 05/05/17) Patient Home Medication List Home Medication List Reviewed: Yes Aspirin (Aspir 81) 81 Mg Tablet.dr, 81 MG PO DAILY, (Reported) Entered as Reported by: FLORES GARCIA on 05/05/17924 Clonazepam (Clonazepam) 0.5 Mg Tab.rapdis, 0.5 MG PO BID, (Reported) Entered as Reported by: FLORES GARCIA on 05/05/17924 Fish Oil/Dha/Epa (Fish Oil 1,200 mg Fish Oil) 1 Each Capsule, 1 EACH PO BID, (Reported) Entered as Reported by: FLORES GARCIA on 05/05/17924 Fluoxetine HCl (Prozac) 20 Mg Capsule, 20 MG PO DAILY, (Reported) Entered as Reported by: FLORES GARCIA on 05/05/17924 Hydrochlorothiazide (Hydrochlorothiazide) 25 Mg Tablet, 25 MG PO DAILY, (Reported) Entered as Reported by: FLORES GARCIA on 05/05/17924 Hydrochlorothiazide (Hydrochlorothiazide) 25 Mg Tablet, 25 MG PO DAILY Prescribed by: HOWIE POP on 02/10/211535 Lisinopril (Lisinopril) 20 Mg Tablet, 20 MG PO DAILY, (Reported) Entered as Reported by: FLORES GARCIA on 05/05/17924 Lisinopril (Lisinopril) 20 Mg Tablet, 20 MG PO DAILY Prescribed by: HOWIE POP on 11/30/21 1536 Methocarbamol (Methocarbamol) 750 Mg Tablet, 750 MG PO TID, (Reported) Entered as Reported by: FLORES GARCIA on 05/05/17924 Metoprolol Tartrate (Metoprolol Tartrate) 25 Mg Tablet, 25 MG PO BID, (Reported) Entered as Reported by: FLORES GARCIA on 05/05/17924 Niacinamide (Niacin) 500 Mg Tablet, 500 MG PO DAILY, (Reported) Entered as Reported by: FLORES GARCIA on 05/05/17924 Nitroglycerin (Nitroglycerin) 0.4 Mg Tab.subl, 0.4 MG SL UD PRN for CHEST PAIN, (Reported) Entered as Reported by: FLORES GARCIA on 05/05/17924 Oxycodone HCl/Acetaminophen (Oxycodone-Acetaminophen 10-325) 1 Each Tablet, 1 EACH PO Q4H PRN for PAIN-MODERATE, (Reported) Entered as Reported by: FLORES GARCIA on 05/05/17924 Pantoprazole Sodium (Pantoprazole Sodium) 40 Mg Tablet.dr, 40 MG PO DAILY, (Reported) Entered as Reported by: FLORES GARCIA on 05/05/17924 Prasugrel HCl (Prasugrel HCl) 10 Mg Tablet, 10 MG PO DAILY, (Reported) Entered as Reported by: FLORES GARCIA on 05/05/17924 Review of Systems Review of Systems Constitutional: see HPI EENTM: no symptoms reported Respiratory: no symptoms reported, see HPI Cardiovascular: see HPI Genitourinary: see HPI Musculoskeletal: see HPI Skin: see HPI Psychiatric/Neurological: See HPI Hematologic/Lymphatic: See HPI Immunological/Allergic: see HPI All Other Systems Reviewed Negative Unless Noted: No Past Ahswlds-Lalbcg-Zxwjpr Hx Patient Social History Tobacco Use?: No Immunizations Up To Date First/Initial COVID19 Vaccinat: Not currently vaccinated Seasonal Allergies Seasonal Allergies: Yes Past Medical History Surgery/Hospitalization HX: HTN; [place]; Cardiac stent; Arthritis Surgeries: Yes (CARDIAC STENT/ANGIOPLASTY, CS X4) Section, Coronary Stent, Gallbladder, Tonsillectomy Respiratory: Yes (EARYL STAGES OF COPD) COPD Cardiac: Yes (STENT/ANGIOPLASTY AUGUST 2016) Coronary Artery Disease, Heart Attack, Heart Murmur, High Cholesterol, Hypertension Neurological: No Reproductive Disorders: No Female Reproductive Disorders: Denies Sexually Transmitted Disease: No HIV/AIDS: No Gastrointestinal: Yes Gastroesophageal Reflux Musculoskeletal: Yes Degenerate Disk Disease, Arthritis, Chronic Back Pain Endocrine: No Loss of Vision: Bilateral Hearing Impairment: Denies Cancer: No Psychosocial: Yes Anxiety Integumentary: No Blood Disorders: No Adverse Reaction/Blood Tranf: No Family Medical History Hypertension, Renal Disease Physical Exam Vital Signs Vital Signs - First Documented 04/16/22 12:23 Temp 36.9 Pulse 86 Resp 20 B/P (MAP) 177/88 (117) Pulse Ox 99 O2 Delivery Room Air Capillary Refill : Height, Weight, BMI Height: 5'6.50" Weight: 256lbs. 9.0oz. 116.794466on; 43.00 BMI Method:Stated General Appearance: No Apparent Distress, WD/WN Eyes: Bilateral Eye Normal Inspection, Bilateral Eye PERRL, Bilateral Eye EOMI HEENT: PERRL/EOMI, Pharynx Normal Neck: Full Range of Motion, Non Tender Respiratory: Lungs Clear Cardiovascular: Regular Rate, Rhythm Gastrointestinal: Non Tender, Soft Neurologic/Psychiatric: Alert, Oriented x3, Normal Mood/Affect Focused Exam Sepsis Stage: Ruled Out Progress/Results/Core Measures Suspected Sepsis SIRS Temperature: Pulse: Respiratory Rate: Laboratory Tests 04/16/22 12:29: White Blood Count 7.3 Blood Pressure / Mean: Laboratory Tests 04/16/22 12:29: Creatinine 0.89, Platelet Count 325, Total Bilirubin 0.4 Results/Orders Lab Results Laboratory Tests Test 04/16/22 12:29 04/16/22 14:07 Range/Units White Blood Count 7.3 4.3-11.0 10^3/uL Red Blood Count 4.70 3.80-5.11 10^6/uL Hemoglobin 13.9 11.5-16.0 g/dL Hematocrit 42 35-52 % Mean Corpuscular Volume 89 80-99 fL Mean Corpuscular Hemoglobin 30 25-34 pg Mean Corpuscular Hemoglobin Concent 33 32-36 g/dL Red Cell Distribution Width 13.1 10.0-14.5 % Platelet Count 325 130-400 10^3/uL Mean Platelet Volume 10.8 9.0-12.2 fL Immature Granulocyte % (Auto) 0 % Neutrophils (%) (Auto) 64 42-75 % Lymphocytes (%) (Auto) 24 12-44 % Monocytes (%) (Auto) 6 0-12 % Eosinophils (%) (Auto) 5 0-10 % Basophils (%) (Auto) 1 0-10 % Neutrophils # (Auto) 4.7 1.8-7.8 10^3/uL Lymphocytes # (Auto) 1.7 1.0-4.0 10^3/uL Monocytes # (Auto) 0.4 0.0-1.0 10^3/uL Eosinophils # (Auto) 0.4 H 0.0-0.3 10^3/uL Basophils # (Auto) 0.1 0.0-0.1 10^3/uL Immature Granulocyte # (Auto) 0.0 0.0-0.1 10^3/uL D-Dimer 0.41 0.00-0.49 UG/ML Sodium Level 138 135-145 MMOL/L Potassium Level 3.7 3.6-5.0 MMOL/L Chloride Level 100 98-107 MMOL/L Carbon Dioxide Level 27 21-32 MMOL/L Anion Gap 11 5-14 MMOL/L Blood Urea Nitrogen 26 H 7-18 MG/DL Creatinine 0.89 0.60-1.30 MG/DL Estimat Glomerular Filtration Rate 76 BUN/Creatinine Ratio 29 Glucose Level 97 70-105 MG/DL Calcium Level 10.0 8.5-10.1 MG/DL Corrected Calcium 8.5-10.1 MG/DL Magnesium Level 2.0 1.6-2.4 MG/DL Total Bilirubin 0.4 0.1-1.0 MG/DL Aspartate Amino Transf (AST/SGOT) 22 5-34 U/L Alanine Aminotransferase (ALT/SGPT) 24 0-55 U/L Alkaline Phosphatase 105 40-136 U/L Troponin I < 0.30 <0.30 NG/ML Total Protein 7.8 6.4-8.2 GM/DL Albumin 4.8 H 3.2-4.5 GM/DL Thyroid Stimulating Hormone (TSH) 0.91 0.35-4.94 UIU/ML Influenza Type A (RT-PCR) Not Detected Not Detecte Influenza Type B (RT-PCR) Not Detected Not Detecte SARS-CoV-2 RNA (RT-PCR) Not Detected Not Detecte My Orders Orders - VIOLETA CHUNG DO Cbc With Automated Diff (04/16/22 12:25) Comprehensive Metabolic Panel (04/16/22 12:25) Troponin I Fs (04/16/22 12:25) Thyroid Stimulating Hormone (04/16/22 12:25) Magnesium (04/16/22 12:25) Ekg Tracing (04/16/22 12:25) Fibrin Degradation Products (04/16/22 12:25) Covid 19 Inhouse Test (04/16/22 14:02) Influenza A And B By Pcr (04/16/22 14:02) Isolation Central Supply Req (04/16/22 14:02) Vital Signs/I&O 04/16/22 12:23 Temp 36.9 Pulse 86 Resp 20 B/P (MAP) 177/88 (117) Pulse Ox 99 O2 Delivery Room Air Capillary Refill : Departure Communication (Admissions) EKG:Sinus rhythm, low voltage, rate 63 Patient remains patient with no focal neurologic deficits. Denies chest pain palpitation shortness of breath. No fever chills or sweats. Patient with vague headache dizziness of malaise and paresthesia of extremities. Electrolytes checked and reassuring. Blood pressure improved without treatment. Recommendations are discharge home, watchful waiting and PCP follow-up. Return precautions reviewed. Patient verbalizes understanding agreement discharge instructions prior to departure. Impression Primary Impression: Dizziness Additional Impression: Paresthesias Disposition: 01 HOME, SELF-CARE Condition: Stable Departure-Patient Inst. Decision time for Depature: 15:00 Referrals: CARLA MOBLEY DO (PCP) Primary Care Physician Patient Instructions: Dizziness, Adult ED, Paresthesia (DC) Add. Discharge Instructions: You were evaluated in the emergency department for headache, numbness in extremities and dizziness. Labs, EKG were performed and are nondiagnostic. The exact cause of your symptoms has not been determined. Please go home and rest, take Aleve or Tylenol for headache increase fluids and follow-up with your PCP next 2 to 3 days for reevaluation if symptoms persist. Return to the ED if new or worsening symptoms. VIOLETA CHUNG DO Apr 16, 2022 12:30
[2022-04-16 12:55] LABS: BASOPHILS # (AUTO) 0.1 10^3/uL (0.0-0.1); BASOPHILS % (AUTO) 1 % (0-10); EOSINOPHILS # (AUTO) 0.4 10^3/uL (0.0-0.3); EOSINOPHILS % (AUTO) 5 % (0-10); HEMATOCRIT 42 % (35-52); HEMOGLOBIN 13.9 g/dL (11.5-16.0); LYMPHOCYTES # (AUTO) 1.7 10^3/uL (1.0-4.0); LYMPHOCYTES % (AUTO) 24 % (12-44); MEAN CORPUSCULAR HEMOGLOBIN 30 pg (25-34); MEAN CORPUSCULAR HGB CONC 33 g/dL (32-36); MEAN CORPUSCULAR VOLUME 89 fL (80-99); MEAN PLATELET VOLUME 10.8 fL (9.0-12.2); MONOCYTES # (AUTO) 0.4 10^3/uL (0.0-1.0); MONOCYTES % (AUTO) 6 % (0-12); NEUTROPHILS # (AUTO) 4.7 10^3/uL (1.8-7.8); NEUTROPHILS % (AUTO) 64 % (42-75); PLATELET COUNT 325 10^3/uL (130-400); WHITE BLOOD COUNT 7.3 10^3/uL (4.3-11.0)
[2022-04-16 13:09] LABS: BUN/CREATININE RATIO 29; CARBON DIOXIDE 27 MMOL/L (21-32); CHLORIDE 100 MMOL/L (98-107); CREATININE SERUM 0.89 MG/DL (0.60-1.30); GFR ESTIMATED 76; GLUCOSE 97 MG/DL (70-105); POTASSIUM 3.7 MMOL/L (3.6-5.0); SODIUM 138 MMOL/L (135-145)
[2022-04-16 13:10] LABS: ALANINE AMINOTRANSFERASE 24 U/L (0-55); ALBUMIN 4.8 GM/DL (3.2-4.5); ALKALINE PHOSPHATASE 105 U/L (40-136); BILIRUBIN,TOTAL 0.4 MG/DL (0.1-1.0); TOTAL PROTEIN 7.8 GM/DL (6.4-8.2)
[2022-04-16 15:04] VITALS: BP 127/56
== END 2022-04-16 15:03 | disposition home or self-care (01) ==
LOC: EDUNIT# 12:20 → ER FS 12:21
DX: R42 Dizziness and giddiness (principal); R20.2 Paresthesia of skin; Z20.822 Contact with and (suspected) exposure to COVID-19; Z28.310 Unvaccinated for COVID-19
CPT/HCPCS: 36415; 80053; 83735; 84443; 84484; 85025; 85379; 87636; 93005

== ENCOUNTER 2022-09-05 22:06 | Emergency (ER) | payer BC ==
[~2022-09-05] VITALS: Ht 167.7 cm; Wt 114.1 kg
[2022-09-05] MEDS ORDERED: NS IV 1000 ML 1,000 ML IV STA (22:38)
--- NOTE | 2022-09-05 22:38 | ED Abdominal Pain ---
General Chief Complaint: Abdominal/GI Problems Stated Complaint: ABDOMINAL PAINS| FEVER History of Present Illness Date Seen by Provider: Sep 05, 2022 Time Seen by Provider: 22:30 Initial Comments 56-year-old female presents with lower abdominal cramping and diarrhea. Is been going on for 6 to 7 days. Patient was seen earlier in the week at [facility] and told that it was a viral bug. She presents tonight because she is just continue to have pain and cramping. Allergies and Home Medications Allergies Coded Allergies: simvastatin (Verified Allergy, Mild, HIVES, 05/05/17) Patient Home Medication List Home Medication List Reviewed: Yes Aspirin (Aspir 81) 81 Mg Tablet.dr, 81 MG PO DAILY, (Reported) Entered as Reported by: FLORES GARCIA on 05/05/17924 Ciprofloxacin HCl (Ciprofloxacin HCl) 500 Mg Tablet, 500 MG PO BID Prescribed by: STACI ABEL on 09/06/22 0029 Clonazepam (Clonazepam) 0.5 Mg Tab.rapdis, 0.5 MG PO BID, (Reported) Entered as Reported by: FLORES GARCIA on 05/05/17924 Fish Oil/Dha/Epa (Fish Oil 1,200 mg Fish Oil) 1 Each Capsule, 1 EACH PO BID, (Reported) Entered as Reported by: FLORES GARCIA on 05/05/17924 Fluoxetine HCl (Prozac) 20 Mg Capsule, 20 MG PO DAILY, (Reported) Entered as Reported by: FLORES GARCIA on 05/05/17924 Hydrochlorothiazide (Hydrochlorothiazide) 25 Mg Tablet, 25 MG PO DAILY, (Re ported) Entered as Reported by: FLORES GARCIA on 05/05/17924 Lisinopril (Lisinopril) 20 Mg Tablet, 20 MG PO DAILY, (Reported) Entered as Reported by: FLORES GARCIA on 05/05/17924 Methocarbamol (Methocarbamol) 750 Mg Tablet, 750 MG PO TID, (Reported) Entered as Reported by: FLORES GARCIA on 05/05/17924 Metoprolol Tartrate (Metoprolol Tartrate) 25 Mg Tablet, 25 MG PO BID, (Reported) Entered as Reported by: FLORES GARCIA on 05/05/17924 Metronidazole (Metronidazole) 500 Mg Tablet, 500 MG PO BID Prescribed by: STACI ABEL on 09/06/22 0029 Niacinamide (Niacin) 500 Mg Tablet, 500 MG PO DAILY, (Reported) Entered as Reported by: FLORES GARCIA on 05/05/17924 Nitroglycerin (Nitroglycerin) 0.4 Mg Tab.subl, 0.4 MG SL UD PRN for CHEST PAIN, (Reported) Entered as Reported by: FLORES GARCIA on 05/05/17924 Oxycodone HCl/Acetaminophen (Oxycodone-Acetaminophen 10-325) 1 Each Tablet, 1 EACH PO Q4H PRN for PAIN-MODERATE, (Reported) Entered as Reported by: FLORES GARCIA on 05/05/17924 Pantoprazole Sodium (Pantoprazole Sodium) 40 Mg Tablet.dr, 40 MG PO DAILY, (Reported) Entered as Reported by: FLORES GARCIA on 05/05/17924 Prasugrel HCl (Prasugrel HCl) 10 Mg Tablet, 10 MG PO DAILY, (Reported) Entered as Reported by: FLORES GARCIA on 05/05/17924 Discontinued Medications Hydrochlorothiazide (Hydrochlorothiazide) 25 Mg Tablet, 25 MG PO DAILY Discontinued Reason: Referral/FU Appt-Addtl Prescribed by: HOWIE POP on 02/10/211535 Last Action: Discontinued Lisinopril (Lisinopril) 20 Mg Tablet, 20 MG PO DAILY Discontinued Reason: Referral/FU Appt-Addtl Prescribed by: HOWIE POP on 02/10/211535 Last Action: Discontinued Review of Systems Review of Systems Constitutional: No chills, No fever Respiratory: No Symptoms Reported Cardiovascular: No Symptoms Reported Gastrointestinal: See HPI, Abdominal Pain, Diarrhea Genitourinary: No Symptoms Reported Musculoskeletal: no symptoms reported Skin: no symptoms reported Psychiatric/Neurological: No Symptoms Reported Endocrine: No Symptoms Reported Hematologic/Lymphatic: No Symptoms Reported Past Lawiffv-[id number] Hx Patient Social History Tobacco Use?: No Smoking Status: Unknown if Ever Smoked Use of E-Cig and/or Vaping dev: No Use of E-Cig and/or Vaping Silvio: Unknown if Ever Used Substance use?: No Alcohol Use?: Yes Alcohol Frequency: Once in a while Pt feels they are or have been: No Immunizations Up To Date Influenza Vaccine Up-to-Date: No; Not Current First/Initial COVID19 Vaccinat: Not currently vaccinated Second COVID19 Vaccination Francois: Not currently vaccinated Third COVID19 Vaccination Date: Not currently vaccinated Seasonal Allergies Seasonal Allergies: Yes Past Medical History Surgery/Hospitalization HX: HTN; SD; Cardiac stent; Arthritis; GERD Surgeries: Yes (CARDIAC STENT/ANGIOPLASTY, CS X4) Section, Coronary Stent, Gallbladder, Tonsillectomy Respiratory: Yes (EARYL STAGES OF COPD) COPD Cardiac: Yes (STENT/ANGIOPLASTY AUGUST 2016) Coronary Artery Disease, Heart Attack, Heart Murmur, High Cholesterol, Hypertension Neurological: No Reproductive Disorders: No Female Reproductive Disorders: Denies Sexually Transmitted Disease: No HIV/AIDS: No Gastrointestinal: Yes Gastroesophageal Reflux Musculoskeletal: Yes Degenerate Disk Disease, Arthritis, Chronic Back Pain Endocrine: No Loss of Vision: Bilateral Hearing Impairment: Denies Cancer: No Psychosocial: Yes Anxiety Integumentary: No Blood Disorders: No Adverse Reaction/Blood Tranf: No Family Medical History Hypertension, Renal Disease Physical Exam Vital Signs Vital Signs - First Documented 09/05/22 22:15 Temp 36.8 Pulse 95 Resp 16 B/P (MAP) 154/82 (106) Pulse Ox 98 O2 Delivery Room Air Capillary Refill : Height/Weight/BMI Height: 5'6.50" Weight: 256lbs. 9.0oz. [id number]; 40.00 BMI Method:Stated General Appearance: WD/WN, no apparent distress Respiratory: lungs clear, normal breath sounds Cardiovascular: normal peripheral pulses, regular rate, rhythm Gastrointestinal: soft, tenderness Neurologic/Psychiatric: alert, normal mood/affect, oriented x 3 Skin: normal color, warm/dry Progress/Results/Core Measures Results/Orders Lab Results Laboratory Tests Test 09/05/22 22:20 09/05/22 22:45 Range/Units Urine Color DARK YELLOW Urine Clarity CLEAR Urine pH 6.0 5-9 Urine Specific [place] 1.025 H 1.016-1.022 Urine Protein TRACE H NEGATIVE Urine Glucose (UA) NEGATIVE NEGATIVE Urine Ketones NEGATIVE NEGATIVE Urine Nitrite NEGATIVE NEGATIVE Urine Bilirubin NEGATIVE NEGATIVE Urine Urobilinogen 0.2 < = 1.0 MG/DL Urine Leukocyte Esterase NEGATIVE NEGATIVE Urine RBC (Auto) TRACE-I H NEGATIVE Urine RBC 2-5 H /HPF Urine WBC 10-25 H /HPF Urine Squamous Epithelial Cells 25-50 H /HPF Urine Crystals NONE /LPF Urine Bacteria MODERATE H /HPF Urine Casts NONE /LPF Urine Mucus MODERATE H /LPF Urine Culture Indicated NO White Blood Count 5.9 4.3-11.0 10^3/uL Red Blood Count 4.45 3.80-5.11 10^6/uL Hemoglobin 13.0 11.5-16.0 g/dL Hematocrit 40 35-52 % Mean Corpuscular Volume 89 80-99 fL Mean Corpuscular Hemoglobin 29 25-34 pg Mean Corpuscular Hemoglobin Concent 33 32-36 g/dL Red Cell Distribution Width 13.0 10.0-14.5 % Platelet Count 294 130-400 10^3/uL Mean Platelet Volume 10.4 9.0-12.2 fL Immature Granulocyte % (Auto) 2 % Neutrophils (%) (Auto) 71 42-75 % Lymphocytes (%) (Auto) 17 12-44 % Monocytes (%) (Auto) 7 0-12 % Eosinophils (%) (Auto) 3 0-10 % Basophils (%) (Auto) 1 0-10 % Neutrophils # (Auto) 4.2 1.8-7.8 10^3/uL Lymphocytes # (Auto) 1.0 1.0-4.0 10^3/uL Monocytes # (Auto) 0.4 0.0-1.0 10^3/uL Eosinophils # (Auto) 0.2 0.0-0.3 10^3/uL Basophils # (Auto) 0.1 0.0-0.1 10^3/uL Immature Granulocyte # (Auto) 0.1 0.0-0.1 10^3/uL Sodium Level 140 135-145 MMOL/L Potassium Level 3.6 3.6-5.0 MMOL/L Chloride Level 101 98-107 MMOL/L Carbon Dioxide Level 28 21-32 MMOL/L Anion Gap 11 5-14 MMOL/L Blood Urea Nitrogen 19 H 7-18 MG/DL Creatinine 0.74 0.60-1.30 MG/DL Estimat Glomerular Filtration Rate 94 BUN/Creatinine Ratio 26 Glucose Level 120 H 70-105 MG/DL Calcium Level 9.8 8.5-10.1 MG/DL Corrected Calcium 10.0 8.5-10.1 MG/DL Magnesium Level 1.9 1.6-2.4 MG/DL Total Bilirubin 0.3 0.1-1.0 MG/DL Aspartate Amino Transf (AST/SGOT) 25 5-34 U/L Alanine Aminotransferase (ALT/SGPT) 22 0-55 U/L Alkaline Phosphatase 90 40-136 U/L C-Reactive Protein 4.83 H <0.50 MG/DL Total Protein 7.2 6.4-8.2 GM/DL Albumin 3.8 3.2-4.5 GM/DL My Orders Orders - ABEL,STACI L DO Cbc With Automated Diff (09/05/22 22:38) Comprehensive Metabolic Panel (09/05/22 22:38) Magnesium (09/05/22 22:38) Ua Culture If Indicated (09/05/22:38) Crp Fs (09/05/22 22:38) Ct Abdomen/Pelvis W (09/05/22 22:38) Ns Iv 1000 Ml (Sodium Chloride 0.9%) (09/05/22 22:38) Iohexol Injection (Omnipaque 350 Mg/Ml 1 (09/05/22 23:00) Received Contrast (Hold Metformin- Contr (09/05/22 23:00) Sodium Chloride Flush (Catheter Flush Sy (09/05/22 23:00) Ns (Ivpb) (Sodium Chloride 0.9% Ivpb Bag (09/05/22 23:00) Ketorolac Injection (Toradol Injection) (09/06/22 00:25) Medications Given in ED Current Medications Medications Dose Ordered Sig/Dorie Route Start Time Stop Time Status Last Admin Dose Admin Iohexol 80 ml ONCE ONCE IV 09/05/22 23:00 09/05/22 23:01 DC 09/05/22 23:38 80 ML Sodium Chloride 10 ml NEEDED PRN IV 09/05/22 23:00 09/06/22 00:43 DC 09/05/22 23:38 10 ML Sodium Chloride 100 ml ONCE ONCE IV 09/05/22 23:00 09/05/22 23:01 DC 09/05/22 23:38 100 ML Vital Signs/I&O 09/05/22 09/06/22 09/06/22 22:15 00:30 00:42 Temp 36.8 36.8 36.8 Pulse 95 89 Resp 16 16 B/P (MAP) 154/82 (106) 113/72 Pulse Ox 98 97 O2 Delivery Room Air Room Air 09/06/22 00:00 Intake Total 1000 ml Balance 1000 ml Progress Progress Note : Progress Note Patient's diagnostic studies were ordered reviewed and interpreted by me. Patient had minor elevation of CRP otherwise no significant acute findings. Patient CT abdomen pelvis was ordered and reviewed. With final interpretation per radiology report. Patient CT showed some mild inflammation in the right lower quadrant with possible epiploic appendagitis. Patient with no other acute findings. Since patient's been having diarrhea for approximately 7 days we will start her on Cipro and Flagyl. Recommended she follow-up with her primary care provider and 3 to 4 days of her diarrhea has not improved or resolved or if it continues to worsen. Patient stable and discharged home Departure Impression Primary Impression: Diarrhea Qualified Codes: R19.7 - Diarrhea, unspecified Disposition: 01 HOME, SELF-CARE Condition: Stable Departure-Patient Inst. Referrals: CARLA MOBLEY DO (PCP/Family) Primary Care Physician Patient Instructions: Diarrhea in adolescents and adults Add. Discharge Instructions: Drink plenty of fluids, follow-up with your primary care provider if not improving over the next 3 to 4 days or return to the ER with worsening of sympto ms or any other concerns. All discharge instructions reviewed with patient and/or family. Voiced understanding. Scripts Metronidazole (Metronidazole) 500 Mg Tablet 500 MG PO BID, #14 TAB 0 Refills Prov: STACI ABEL DO 09/06/22 Ciprofloxacin HCl (Ciprofloxacin HCl) 500 Mg Tablet 500 MG PO BID, #14 TAB Prov: STACI ABEL DO 09/06/22 STACI ABEL DO Sep 05, 2022 22:38
[2022-09-05 22:52] LABS: BASOPHILS # (AUTO) 0.1 10^3/uL (0.0-0.1); BASOPHILS % (AUTO) 1 % (0-10); EOSINOPHILS # (AUTO) 0.2 10^3/uL (0.0-0.3); EOSINOPHILS % (AUTO) 3 % (0-10); HEMATOCRIT 40 % (35-52); LYMPHOCYTES % (AUTO) 17 % (12-44); MEAN CORPUSCULAR HEMOGLOBIN 29 pg (25-34); MEAN CORPUSCULAR HGB CONC 33 g/dL (32-36); MEAN CORPUSCULAR VOLUME 89 fL (80-99); MEAN PLATELET VOLUME 10.4 fL (9.0-12.2); MONOCYTES # (AUTO) 0.4 10^3/uL (0.0-1.0); MONOCYTES % (AUTO) 7 % (0-12); NEUTROPHILS # (AUTO) 4.2 10^3/uL (1.8-7.8); NEUTROPHILS % (AUTO) 71 % (42-75); PLATELET COUNT 294 10^3/uL (130-400); WHITE BLOOD COUNT 5.9 10^3/uL (4.3-11.0)
[2022-09-05 22:53] LABS: BILIRUBIN,URINE NEGATIVE (NEGATIVE); CLARITY,URINE CLEAR; GLUCOSE, URINE (UA) NEGATIVE (NEGATIVE); KETONES,URINE NEGATIVE (NEGATIVE); LEUKOCYTE ESTERASE ,URINE NEGATIVE (NEGATIVE); NITRITE,URINE NEGATIVE (NEGATIVE); PROTEIN,URINE TRACE (NEGATIVE)
[2022-09-05 22:56] LABS: COLOR,URINE DARK YELLOW
[2022-09-05 22:57] LABS: BACTERIA,URINE MODERATE /HPF; SQUAMOUS EPITHELIAL CELL,UR 25-50 /HPF
[2022-09-05] MEDS ORDERED: IOHEXOL 350 MG/ML 100 ML (OMNIPAQUE 350) VIAL IV ONE (23:00)
[2022-09-05] MEDS ORDERED: HOLD METFORMIN - RECEIVED CONTRAST 20 ML VIAL IV SCH (23:00)
[2022-09-05] MEDS ORDERED: CATHETER FLUSH 10 ML SYR IV PRN (23:00)
[2022-09-05] MEDS ORDERED: NS 100 ML (IVPB) BAG IV ONE (23:00)
[2022-09-05 23:15] LABS: CREATININE SERUM 0.74 MG/DL (0.60-1.30); POTASSIUM 3.6 MMOL/L (3.6-5.0)
[2022-09-05 23:16] LABS: CALCIUM 9.8 MG/DL (8.5-10.1); MAGNESIUM 1.9 MG/DL (1.6-2.4)
[2022-09-05 23:17] LABS: ALBUMIN 3.8 GM/DL (3.2-4.5); BILIRUBIN,TOTAL 0.3 MG/DL (0.1-1.0); TOTAL PROTEIN 7.2 GM/DL (6.4-8.2)
[2022-09-06] MEDS ORDERED: KETOROLAC 30 MG/ML VIAL IVP STA (00:25)
[2022-09-06] MEDS ORDERED: METR-145 PO (00:29)
[2022-09-06] MEDS ORDERED: CIPR500T5 PO (00:29)
[2022-09-06 00:42] VITALS: BP 113/72
--- NOTE | 2022-09-06 06:58 | Diagnostic Imaging Report ---
PROCEDURE: CT abdomen and pelvis with contrast. TECHNIQUE: Multiple contiguous axial images were obtained through the abdomen and pelvis after administration of intravenous contrast. Auto Exposure Controls were utilized during the CT exam to meet ALARA standards for radiation dose reduction. All CT scans use one or more of the following dose optimizing techniques: automated exposure control, MA and/or KvP adjustment based on patient size and exam type or iterative reconstruction. INDICATION: Abdominal pain. COMPARISON: 03/27/2018 FINDINGS: The visualized lung bases are clear. Cholecystectomy. The liver and spleen is unremarkable. The pancreas is unremarkable. The adrenal glands are unremarkable. Small duodenal diverticulum without adjacent inflammatory stranding. The bilateral kidneys and ureters are unremarkable. Mild vascular calcifications without aneurysmal aorta. The urinary bladder is predominantly decompressed, but otherwise unremarkable. The uterus and adnexal structures are unremarkable. Mural thickening of the ascending and transverse colon is noted, though these regions of colon are not well distended. Engorgement of the pericolonic fat is noted. The appendix is not definitely visualized, though mild inflammatory stranding is seen within the right lower quadrant. No bowel obstruction or pneumatosis. No significant adenopathy, free air, or free fluid within the abdomen or pelvis. Scattered osseous degenerative changes without acute osseous abnormality. Minimal grade 1 anterolisthesis of L4 on L5. IMPRESSION: Mild inflammatory stranding within the right lower quadrant. The appendix is not definitely visualized on this examination. As the adjacent colon is mildly thickened, this could relate to underlying colitis. Epiploic appendagitis is felt less likely. Additional findings as above. Findings and impression were called to ordering clinician as I agree with the findings of the preliminary interpretation, though I believe colitis would also be in the differential diagnosis. Report was called to nurse Cammy by kellie at 6:57AM. Dictated by: Dictated on workstation # [id number]
== END 2022-09-06 00:42 | disposition home or self-care (01) ==
LOC: EDUNIT# 22:06 → ER FS 22:08
DX: R19.7 Diarrhea, unspecified (principal); R79.82 Elevated C-reactive protein (CRP); Z28.310 Unvaccinated for COVID-19
CPT/HCPCS: 36415; 74177; 80053; 81000; 83735; 85025; 86141